=== PATIENT | female | born 1990 | race Caucasian/White ===

== ENCOUNTER 2016-04-05 16:57 | Emergency (ER) | payer SELFPAY ==
[2016-04-05 17:13] VITALS: BP 100/50
--- NOTE | 2016-04-05 17:43 | UC ---
Cardiac HPI - HPI Summary HPI Summary: chest tightness for approx 1 week, today since 4:30 with tingling in her right arm. Some nasal congestion. No definite cough and fever. Pt is concerned about mold where they are living and thought the chest tightness was from that. No definite wheezing. Became concerned when the right arm got numb and tingling so sought medical attn. Cardiac risks all neg for HTN, DM, dyslipidemia, smoking and fam hx, substance abuse PE risks also neg for cancer, hx clotting disorder, long trips, oral contraceptives and smoking While EKG was running but not captured on EKG, heart rate noted to be 134 and pt continued to be symptomatic. Pt did not try home remedies. - History of Current Complaint Chief Complaint: UCChestPain Stated Complaint: CHEST TIGHTNESS, TINGLING ARM Time Seen by Provider: 04/05/16 17:12 Hx Obtained From: Patient, Family/Wash Worker - Onset/Duration: Gradual Onset, Lasting Days, Still Present, Worse Since - today with arm tingling on right Timing: Constant Initial Severity: Moderate Pain Intensity: 7 Chest Pain Location: Diffuse - anterior chest Character: Fast, Tightness Aggravating: Nothing Alleviating: Nothing Associated Signs & Symptoms: Positive: Chest Pain, Numbness, Tingling. Negative : SOB, Diaphoresis, Nausea/Vomiting, Cough, Calf Pain/Swelling - Risk Factors Pulmonary Embolism Risk Factors: Negative Cardiac Risk Factors: Negative Atrial Fibrillation: Negative TAD Risk Factors: Negative - Allergy/Home Medications Allergies/Adverse Reactions: Allergies Allergy/AdvReac Type Severity Reaction Status Date / Time No Known Allergies Allergy Verified 04/05/16 17:13 PMH/Surg Hx/FS Hx/Imm Hx Previously Healthy: Yes - Surgical History Surgical History: None - Family History Known Family History: Positive: Other - grandmother with cancer Negative: Cardiac Disease - Social History Lives: With Family Alcohol Use: Occasionally Substance Use Type: None Smoking Status (MU): Never Smoked Tobacco - Immunization History Most Recent Influenza Vaccination: declines Most Recent Tetanus Shot: 2014 Most Recent Pneumonia Vaccination: never Review of Systems Constitutional: Negative Skin: Negative Eyes: Negative ENT: Negative Respiratory: Negative Cardiovascular: Chest Pain Gastrointestinal: Negative Genitourinary: Negative Motor: Negative Neurovascular: Negative Musculoskeletal: Negative Neurological: Paresthesia - right arm, Numbness - right arm Psychological: Negative All Other Systems Reviewed And Are Negative: Yes Physical Exam Triage Information Reviewed: Yes Appearance: Well-Appearing, Well-Nourished, Pain Distress Vital Signs: Initial Vital Signs Temp 97.8 F 04/05/16 17:01 Pulse 131 04/05/16 17:01 Resp 16 04/05/16 17:01 BP 100/50 04/05/16 17:01 Pulse Ox 100 04/05/16 17:01 pulse 131 noted Vital Signs Reviewed: Yes Eyes: Positive: Conjunctiva Clear ENT: Positive: Normal ENT inspection Neck: Positive: Supple, Nontender, No Lymphadenopathy Respiratory: Positive: Lungs clear, Normal breath sounds, No respiratory distress Cardiovascular: Positive: RRR, No Murmur, Pulses Normal, Brisk Capillary Refill Musculoskeletal: Positive: Strength Intact, ROM Intact, Other: - no calf tenderness Neurological: Positive: Alert, Muscle Tone Normal, Other: - sensation intact right arm Psychological Exam: Normal Skin Exam: Normal - Assessment/Plan Course Of Treatment: ekg: SR, 106, nl AVIVCT, nl axis, nl QTC, no acute changes , NSSTW changes. No prior to compare. discussed diff dx with pt and her . Advised that she needs higher level of care. They agree and will drive by private car. They sign AMA for ambulance. - Differential Diagnoses - Chest Pain Differential Diagnosis/HQI/PQRI: Acute [place], ACS, Chest Wall, Lower Respiratory Infection, Pulmonary Embolism, Other: - allergic reaction to mold - Clinical Impression Provider Diagnoses: chest pain. tachycardia. paresthesias right arm - Physician Notifications Time Discussed With Above Provider: 18:05 - Dr. Valdivia Instructed by Provider To: MD Will See In ED Discharge - Discharge Plan Condition: Stable Disposition: AGAINST MEDICAL ADVICE Discharge Disposition Comment: Pt went by private car [facility]
== END 2016-04-05 18:00 | disposition left against medical advice (07) ==
LOC: UCCORT 16:57
DX: R07.89 Other chest pain (principal); R00.0 Tachycardia, unspecified; R20.2 Paresthesia of skin
CPT/HCPCS: 93005; 99212; G0463

== ENCOUNTER 2016-09-25 16:53 | Emergency (ER) | payer OTHER ==
[2016-09-25 17:14] VITALS: BP 104/63
--- NOTE | 2016-09-25 17:20 | UC ---
Complaint Female HPI - HPI Summary HPI Summary: Urinary pain and frequency starting yesterday. Denies fever, vomiting, or back pain. Pt has genital herpes, this feels nothing like her outbreaks. - History Of Current Complaint Stated Complaint: UTI COMPLAINT Time Seen by Provider: 09/25/16 17:12 Hx Obtained From: Patient Hx Last Menstrual Period: ?: Yes Onset/Duration: Gradual Onset, Lasting Hours Timing: Constant Severity Initially: Mild Severity Currently: Moderate Character: Burning Aggravating Factor(s): Urination Associated Signs And Symptoms: Negative: Vaginal Bleeding/Discharge, Vaginal Discharge, Vomiting(# Of Episodes =), Genital Swelling, Genital Blisters - Allergies/Home Medications Allergies/Adverse Reactions: Allergies Allergy/AdvReac Type Severity Reaction Status Date / Time No Known Allergies Allergy Verified 09/25/16 17:13 PMH/Surg Hx/FS Hx/Imm Hx - Additional Past Medical History Additional PMH: hx genital herpes - Surgical History Surgical History: None - Family History Known Family History: Positive: Other - grandmother with cancer Negative: Cardiac Disease - Social History Lives: With Family Alcohol Use: Occasionally Substance Use Type: None Smoking Status (MU): Never Smoked Tobacco - Immunization History Most Recent Influenza Vaccination: Most Recent Tetanus Shot: 2014 Most Recent Pneumonia Vaccination: never Review of Systems Constitutional: Negative Skin: Negative Eyes: Negative ENT: Negative Respiratory: Negative Cardiovascular: Negative Gastrointestinal: Negative Genitourinary: Dysuria, Frequency Motor: Negative Neurovascular: Negative Musculoskeletal: Negative Neurological: Negative Psychological: Negative All Other Systems Reviewed And Are Negative: Yes Physical Exam Triage Information Reviewed: Yes Appearance: Well-Appearing, No Pain Distress, Well-Nourished Vital Signs Reviewed: Yes Eye Exam: Normal Eyes: Positive: Conjunctiva Clear ENT Exam: Normal ENT: Positive: Normal ENT inspection, Hearing grossly normal, Pharynx normal, TMs normal Dental Exam: Normal Neck exam: Normal Neck: Positive: Supple, Nontender, No Lymphadenopathy Respiratory Exam: Normal Respiratory: Positive: Chest non-tender, Lungs clear, Normal breath sounds, No respiratory distress, No accessory muscle use Cardiovascular Exam: Normal Cardiovascular: Positive: RRR, No Murmur Abdomen Description: Positive: Nontender, No Organomegaly. Negative: CVA Tenderness (R), CVA Tenderness (L) Musculoskeletal Exam: Normal Neurological Exam: Normal Neurological: Positive: Alert Psychological Exam: Normal Skin Exam: Normal Complaint Female Dx - Differential Dx/Diagnosis Provider Diagnoses: UTI Discharge - Discharge Plan Condition: Stable Disposition: HOME
[2016-09-25] MEDS ORDERED: Nitrofurantoin Macrocrystals* 50 MG CAP PO ONE (17:39)
[2016-09-25] MEDS ORDERED: Phenazopyridine TAB* 100 MG PO ONE (17:39)
== END 2016-09-25 17:49 | disposition home or self-care (01) ==
LOC: UCEAST 16:53
DX: N39.0 Urinary tract infection, site not specified (principal)
CPT/HCPCS: 81003; 84702; 87077; 87086; 87186; 99212; A9270-GY; G0463

== ENCOUNTER 2016-10-28 18:19 | Emergency (ER) | payer OTHER ==
[2016-10-28 20:06] LABS: Hematocrit 39 % (35-47); Hemoglobin 13.2 g/dl (12.0-16.0); Mean Corpuscular HGB Conc 34 g/dl (31-36); Mean Corpuscular Hemoglobin 32 pg (27-31); Mean Corpuscular Volume 95 fL (80-97); Mean Platelet Volume 11 um3 (7.4-10.4); Red Blood Count 4.13 10^6/ul (4.0-5.4); Red Cell Distribution Width 13 % (10.5-15); White Blood Count 8.3 10^3/ul (3.5-10.8)
[2016-10-28 20:22] LABS: Albumin 4.4 g/dL (3.2-5.2); BUN/Creatinine Ratio 16.7 (8-20); Calcium 9.4 mg/dL (8.6-10.3); EGFR African American 126.9 (>60); EGFR Non-African American 98.7 (>60); Globulin 2.8 g/dL (2-4); Potassium 3.4 mmol/L (3.5-5.0); Total Bilirubin 0.9 mg/dL (0.2-1.0); Total Protein 7.2 g/dL (6.4-8.9)
--- NOTE | 2016-10-28 20:25 | RAD ---
INDICATION: 2 weeks persistent chest tightness. Back pain. COMPARISON: No relevant prior exams available on the [facility] for comparison. TECHNIQUE: Dual energy PA and routine lateral views of the chest were obtained. REPORT: Elevated lung volumes. Clear lungs and pleural spaces. Negative for pneumothorax. The heart, pulmonary vasculature, and mediastinal contours are unremarkable. Unremarkable osseous structures and soft tissue contours. IMPRESSION: Elevated lung volumes which may reflect obstructive lung disease or exuberant inspiratory effort for examination. No evidence for pneumonia or other acute pulmonary or cardiac process.
[2016-10-28 21:09] LABS: TSH (Thyroid Stimulating Horm) 1.16 mcIU/mL (0.34-5.60)
--- NOTE | 2016-10-28 21:27 | ED ---
HPI Chest Pain - HPI Summary HPI Summary: 26F presents with chest tightness for two weeks. She states she had this two months ago and that she had a negative work up at [facility] and was prescribed prednisone and it seem to help. She denies any chest pain. She states she has SOB due to this. She denies any cough. She is not a smoker and is not on control. She denies any recent travel. She does not have a history of asthma and denies any wheezing. She denies any abdominal pain, n/v or acid reflux. she denies any anxiety. She denies any rib pain. She denies any family history of CAD. She is not dm or have HTN. - History of Current Complaint Chief Complaint: EDGeneral Time Seen by Provider: 10/28/16 18:59 Hx Last Menstrual Period: Pain Intensity: 0 - Allergy/Home Medications Allergies/Adverse Reactions: Allergies Allergy/AdvReac Type Severity Reaction Status Date / Time No Known Allergies Allergy Verified 09/25/16 17:13 PMH/Surg Hx/FS Hx/Imm Hx Endocrine/Hematology History: Denies: Hx Anticoagulant Therapy Cardiovascular History: Denies: Hx Hypertension Infectious Disease History: No Infectious Disease History: Denies: Traveled Outside the [place] in Last 30 Days - Family History Known Family History: Positive: Other - grandmother with cancer Negative: Cardiac Disease - Social History Alcohol Use: Occasionally Substance Use Type: Reports: None Smoking Status (MU): Never Smoked Tobacco Review of Systems Negative: Fever Positive: Chest Pain Positive: Shortness Of Breath. Negative: Cough Negative: Abdominal Pain All Other Systems Reviewed And Are Negative: Yes Physical Exam Triage Information Reviewed: Yes Vital Signs On Initial Exam: Initial Vitals Temp Pulse Resp BP Pulse Ox 99.8 F 98 20 109/66 98 10/28/16 18:36 10/28/16 18:36 10/28/16 18:36 10/28/16 18:36 10/28/16 18:36 Vital Signs Reviewed: Yes Appearance: Positive: Well-Appearing Skin: Positive: Warm, Dry Head/Face: Positive: Normal Head/Face Inspection Eyes: Positive: Normal, EOMI, ALEXSANDRA, Conjunctiva Clear ENT: Positive: Normal ENT inspection, Pharynx normal, TMs normal Respiratory/Lung Sounds: Positive: Clear to Auscultation, Breath Sounds Present Cardiovascular: Positive: Normal, RRR Abdomen Description: Positive: Nontender, Soft Bowel Sounds: Positive: Present Diagnostics - Vital Signs Vital Signs Temp Pulse Resp BP Pulse Ox 10/28/16 19:00 98.8 F 98 20 109/66 98 10/28/16 18:36 99.8 F 98 20 109/66 98 - Laboratory Lab Results: Lab Results 10/28/16 10/28/16 10/28/16 Range/Units 19:55 19:55 19:55 WBC 8.3 (3.5-10.8) 10^3/ul RBC 4.13 (4.0-5.4) 10^6/ul Hgb 13.2 (12.0-16.0) g/dl Hct 39 (35-47) % MCV 95 (80-97) fL MCH 32 H (27-31) pg MCHC 34 (31-36) g/dl RDW 13 (10.5-15) % Plt Count 187 (150-450) 10^3/ul MPV 11 H (7.4-10.4) um3 Neut % (Auto) 72.3 (38-83) % Lymph % (Auto) 20.6 L (25-47) % Gibson % (Auto) 5.4 (1-9) % Eos % (Auto) 1.0 (0-6) % Baso % (Auto) 0.7 (0-2) % Absolute Neuts (auto) 6.0 (1.5-7.7) 10^3/ul Absolute Lymphs (auto) 1.7 (1.0-4.8) 10^3/ul Absolute Monos (auto) 0.4 (0-0.8) 10^3/ul Absolute Eos (auto) 0.1 (0-0.6) 10^3/ul Absolute Basos (auto) 0.1 (0-0.2) 10^3/ul Absolute Nucleated RBC 0 10^3/ul Nucleated RBC % 0.1 D-Dimer, Quantitative < 200 (Less Than 230) ng/mL Sodium 138 (133-145) mmol/L Potassium 3.4 L (3.5-5.0) mmol/L Chloride 104 (101-111) mmol/L Carbon Dioxide 29 (22-32) mmol/L Anion Gap 5 (2-11) mmol/L BUN 12 (6-24) mg/dL Creatinine 0.72 (0.51-0.95) mg/dL Est GFR ( Amer) 126.9 (>60) Est GFR (Non-Af Amer) 98.7 (>60) BUN/Creatinine Ratio 16.7 (8-20) Glucose 86 (70-100) mg/dL Calcium 9.4 (8.6-10.3) mg/dL Total Bilirubin 0.90 (0.2-1.0) mg/dL AST 15 (13-39) U/L ALT 8 (7-52) U/L Alkaline Phosphatase 38 (34-104) U/L Troponin I 0.00 (<0.04) ng/mL Total Protein 7.2 (6.4-8.9) g/dL Albumin 4.4 (3.2-5.2) g/dL Globulin 2.8 (2-4) g/dL Albumin/Globulin Ratio 1.6 (1-3) TSH 1.16 (0.34-5.60) mcIU/mL Result Diagrams: 10/28/16 19:55 10/28/16 19:55 Lab Statement: Any lab studies that have been ordered have been reviewed, and results considered in the medical decision making process. - Radiology chest Xray Interpretation: Positive (See Comments) - IMPRESSION: Elevated lung volumes which may reflect obstructive lung disease or exuberant inspiratory effort for examination. No evidence for pneumonia or other acute pulmonary or cardiac process. Radiology Interpretation Completed By: Radiologist Chest Pain Course/Dx - Course Course Of Treatment: 26F presents with chest tightness for two weeks. She states she had this two months ago and that she had a negative work up at [facility] and was prescribed prednisone and it seem to help. She denies any chest pain. She states she has SOB due to this. She denies any cough. She is not a smoker and is not on control. She denies any recent travel. She does not have a history of asthma and denies any wheezing. She denies any abdominal pain, n/v or acid reflux. she denies any anxiety. She denies any rib pain. lungs CTA. RRR. ekg normal. chest xray possible overinflation? labs normal. discussed with patient gave option steriod or inhaler for potential asthma? patient states will follow up with primary. patient understands and agrees with plan. - Chest Pain Differential Diagnosis/HQI/PQRI: Acute [place], Chest Wall, Lower Respiratory Infection, Pulmonary Embolism, Other: - anxiety, asthma - Diagnoses Provider Diagnoses: Chest pain Discharge - Discharge Plan Condition: Good Disposition: HOME Patient Education Materials: Noncardiac Chest Pain (ED) Referrals: Ck Huffman MD [Primary Care Provider] - Additional Instructions: You had a normal cardiac workup so your chest pain is not caused by your heart Keep a journal if notice any particular times/situations the chest tightness is worst or better Follow up with primary for potential testing for asthma and further work up Return to ED if develop any new or worsening symptoms
[2016-10-28 21:48] VITALS: BP 118/52
== END 2016-10-28 21:49 | disposition home or self-care (01) ==
LOC: ED 18:19
DX: R07.9 Chest pain, unspecified (principal); R06.02 Shortness of breath
CPT/HCPCS: 36415; 71020; 80053; 84443; 84484; 85025; 85379; 93005; 99282

== ENCOUNTER 2016-11-06 18:01 | Emergency (ER) | payer OTHER ==
[2016-11-06 18:15] VITALS: BP 117/68
--- NOTE | 2016-11-06 19:29 | RAD ---
INDICATION: Left ring finger injury. TECHNIQUE: 3 views of the left ring finger were obtained. FINDINGS: The bones are normal alignment. No fracture is seen. Joint spaces appear maintained. IMPRESSION: NO EVIDENCE FOR FRACTURE.
--- NOTE | 2016-11-06 19:51 | UC ---
Hand/Wrist HPI - HPI Summary HPI Summary: BRUISING TO (PALMAR SURFACE) OF LEFT (4TH) RING FINGER. NO KNOWN TRAUMA. BRUISE BEGAN TWO DAYS AGO. MILDLY TENDER TO TOUCH. - History Of Current Complaint Chief Complaint: UCUpperExtremity Stated Complaint: FINGER COMPLAINT Time Seen by Provider: 11/06/16 19:01 Hx Obtained From: Patient Hx Last Menstrual Period: 21272 Onset/Duration: Sudden Onset, Lasting Days, Still Present Severity Initially: Mild Severity Currently: Mild Character Of Pain: Dull, Aching Aggravating Factor(s): Other - TOUCH Alleviating: Nothing Associated Signs And Symptoms: Positive: Bruising. Negative: Swelling, Redness , Weakness, Numbness/Tingling Related History: Dominant Hand Right - Allergies/Home Medications Allergies/Adverse Reactions: Allergies Allergy/AdvReac Type Severity Reaction Status Date / Time No Known Allergies Allergy Verified 09/25/16 17:13 PMH/Surg Hx/FS Hx/Imm Hx Previously Healthy: Yes Other History Of: Negative For: Anticoagulant Therapy - Surgical History Surgical History: None - Family History Known Family History: Positive: Other - grandmother with cancer Negative: Cardiac Disease - Social History Occupation: Employed Full-time Lives: With Family Alcohol Use: Occasionally Substance Use Type: None Smoking Status (MU): Never Smoked Tobacco - Immunization History Most Recent Influenza Vaccination: Most Recent Tetanus Shot: 2014 Most Recent Pneumonia Vaccination: never Review of Systems Constitutional: Negative Skin: Bruising - LEFT FOURTH FINGER Eyes: Negative ENT: Negative Respiratory: Negative Cardiovascular: Negative Gastrointestinal: Negative Genitourinary: Negative Motor: Negative Neurovascular: Negative Musculoskeletal: Negative Neurological: Negative Psychological: Negative All Other Systems Reviewed And Are Negative: Yes Physical Exam Triage Information Reviewed: Yes Appearance: Well-Appearing, No Pain Distress, Well-Nourished Vital Signs: Initial Vital Signs Temp 98 F 11/06/16 18:05 Pulse 67 11/06/16 18:05 Resp 20 11/06/16 18:05 BP 117/68 11/06/16 18:05 Pulse Ox 100 11/06/16 18:05 Vital Signs Reviewed: Yes Eye Exam: Normal ENT Exam: Normal ENT: Positive: Normal ENT inspection, Hearing grossly normal, TMs normal Dental Exam: Normal Neck exam: Normal Neck: Positive: Supple, Nontender, No Lymphadenopathy Respiratory Exam: Normal Respiratory: Positive: Chest non-tender, Lungs clear, Normal breath sounds, No respiratory distress, No accessory muscle use Cardiovascular Exam: Normal Cardiovascular: Positive: RRR, No Murmur, Pulses Normal, Brisk Capillary Refill Abdominal Exam: Normal Abdomen Description: Positive: Nontender, No Organomegaly Musculoskeletal Exam: Normal Neurological Exam: Normal Psychological Exam: Normal Skin: Positive: Other - LEFT FOURTH FINGER QUINTERO SURFACE ECCYMOSIS (2CM X 1CM ) Hand/Wrist Course/Dx - Differential Dx/Diagnosis Differential Diagnosis/HQI/PQRI: Contusion, Dislocation, Fracture, Sprain, Strain, Other - SUPERFICIAL THROMBOPHLEBITIS Provider Diagnoses: CONTUSION LEFT FOURTH FINGER Discharge - Discharge Plan Condition: Stable Disposition: HOME Patient Education Materials: Contusion in Adults (ED) Referrals: Ck Huffman MD [Primary Care Provider] - Images Hands: 1 - CONTUSION HERE
== END 2016-11-06 19:52 | disposition home or self-care (01) ==
LOC: UCEAST 18:01
DX: S60.042A Contusion of left ring finger without damage to nail, initial encounter (principal); X58.XXXA Exposure to other specified factors, initial encounter; Y93.9 Activity, unspecified; Y92.9 Unspecified place or not applicable
CPT/HCPCS: 73140; 99213; G0463

== ENCOUNTER 2016-12-07 17:27 | Emergency (ER) | payer OTHER ==
[2016-12-07 17:45] VITALS: BP 103/61
--- NOTE | 2016-12-07 17:48 | UC ---
Complaint Female HPI - HPI Summary HPI Summary: 26 YEAR OLD FEMALE PRESENTS WITH BACK PAIN, URINARY FREQUENCY AND URGENCY. - History Of Current Complaint Chief Complaint: UCGU Stated Complaint: UTI Time Seen by Provider: 12/07/16 17:47 Hx Obtained From: Patient Hx Last Menstrual Period: no period since stopping depo Onset/Duration: Sudden Onset Severity Initially: Moderate Severity Currently: Moderate Pain Scale Used: 0-10 Numeric - 5 Character: Sharp - Allergies/Home Medications Allergies/Adverse Reactions: Allergies Allergy/AdvReac Type Severity Reaction Status Date / Time No Known Allergies Allergy Verified 09/25/16 17:13 PMH/Surg Hx/FS Hx/Imm Hx Previously Healthy: Yes Other History Of: Negative For: Anticoagulant Therapy - Surgical History Surgical History: None - Family History Known Family History: Positive: Other - grandmother with cancer Negative: Cardiac Disease - Social History Alcohol Use: Occasionally Substance Use Type: None Smoking Status (MU): Never Smoked Tobacco - Immunization History Most Recent Influenza Vaccination: declines Most Recent Tetanus Shot: 2014 Most Recent Pneumonia Vaccination: never Review of Systems Constitutional: Negative Skin: Negative Eyes: Negative ENT: Negative Respiratory: Negative Cardiovascular: Negative Gastrointestinal: Negative Genitourinary: Frequency, Urgency Motor: Negative Neurovascular: Negative Musculoskeletal: Negative Neurological: Negative Psychological: Negative All Other Systems Reviewed And Are Negative: Yes Physical Exam Triage Information Reviewed: Yes Vital Signs: Initial Vital Signs Temp 37.3 C 12/07/16 17:42 Pulse 79 12/07/16 17:42 Resp 18 12/07/16 17:42 BP 103/61 12/07/16 17:42 Pulse Ox 100 12/07/16 17:42 Eye Exam: Normal ENT Exam: Normal Dental Exam: Normal Neck exam: Normal Neck: Positive: 1 Respiratory Exam: Normal Cardiovascular Exam: Normal Abdominal Exam: Normal Musculoskeletal Exam: Normal Neurological Exam: Normal Psychological Exam: Normal Skin Exam: Normal Complaint Female Dx - Differential Dx/Diagnosis Provider Diagnoses: URINARY FREQUNECY. URINARY URGENCY Discharge - Discharge Plan Condition: Stable Disposition: HOME Prescriptions: Nitrofurantoin Monohyd Macro [Macrobid] 100 mg PO BID #[id number] cap Patient Education Materials: Urinary Tract Infection in Women (ED) Referrals: Ck Huffman MD [Primary Care Provider] -
== END 2016-12-07 18:23 | disposition home or self-care (01) ==
LOC: UCEAST 17:27
DX: R35.0 Frequency of micturition (principal); R39.15 Urgency of urination; Z32.02 Encounter for pregnancy test, result negative
CPT/HCPCS: 81003; 84702; 87086; 99212; G0463